=== PATIENT | female | born 2005 | race Caucasian/White ===

== ENCOUNTER 2023-01-15 18:16 | Emergency (ER) | payer OTHER ==
[~2023-01-15] VITALS: Ht 162.6 cm; Wt 95.2 kg
[2023-01-15 18:59] VITALS: BP 135/97
== END 2023-01-15 19:33 | disposition home or self-care (01) ==
LOC: ER 18:16
DX: R10.31 Right lower quadrant pain (principal)
CPT/HCPCS: 99283